=== PATIENT | female | born 2000 | race Caucasian/White ===

== ENCOUNTER 2024-10-01 12:17 | Emergency (ER) | payer SELFPAY ==
--- OUTSIDE RECORDS SUMMARY | 2024-10-01 12:21 | XMS REPORT | Continuity of Care Document ---
Author Name Unknown Address [address] [facility]. [phone] [facility] [place] Address [address] [facility] [phone] Care Team Providers Care Health/Safety Job Titles Name Role Phone PCP, PATIENT DOES NOT HAVE A Primary Care Physic tyrone Unavailable Sabina HOFFMAN Attending Clinician Unavailable Sabina HOFFMAN Attending Clinician Unavailable Pcp, Patient Does Not Have A Attending Clinician Ari Lira NP Attending Clinician [phone] ARI LIRA Attending Clinician UnavailLIU Sanabria Attending Clinician Unavaildorie GENAOPLiu Attending Clinician [phone] Doctor Unassigned, Laona Attending Clinician U Sonu Echavarria MD Attending Clinician [phone] SONU SOTO Attending Clinician Marilyn Blair MD Attending Clinician [phone] Pob, Adc Lab Main Attending Clinician Unavailabl e Ultrasound, Adc Mfm Attending Clinician Unavaildorie Johnston MD, Jackson Attending Clinician + ARI LIRA Admitting Clinician LIU Cadena Admitting Clinician UnavailMarilyn Bhat MD Admitting Clinician [phone] Payers Payer Name Policy Type Policy Number Effective Date Expirati on Date Source [employer] - OUT OF STATE [id number] 2018 00:00:00 MEDICA[place] [id number] 2021 00:00:00 Problems Condition Name Condition Details Condition Category Status Onset Date Resolution Date Last Treatment Date Treating Clinician Comments Source Right ovarian cyst Right ovarian cyst Disease Active 08-12 00:00: 00 [facility] Pelvic cramping Pelvic cramping Disease Active 08-12 00:00: 00 [facility] IUD (intrauter ine device) in place IUD (intrauter ine device) in place Disease Active 12-11 00:00: 00 [facility] BMI 27.0-27.9, adult BMI 27.0-27.9, adult Disease Active 12-11 00:00: 00 [facility] BMI 27.0-27.9, adult BMI 27.0-27.9, adult Disease Active 12-11 00:00: 00 [facility] Tetrahydro cannabinol (THC) use disorder, mild, abuse Tetrahydro cannabinol (THC) use disorder, mild, abuse Disease Active 02-24 00:00: 00 [facility] Tetrahydro cannabinol (THC) use disorder, mild, abuse Tetrahydro cannabinol (THC) use disorder, mild, abuse Disease Active 02-24 00:00: 00 [facility] Allergies, Adverse Reactions, Alerts Allergy Name Allergy Type Status Severity Reaction(s) Onset Date Inactive Date Treating Clinician Comments Source NO KNOWN ALLERGIE S Drug Class Active [facility] Social History Social Habit Start Date Stop Date Quantity Comments Source History SDOH Alcohol Comment [facility] History SDOH Alcohol Std Drinks [facility] History SDOH Alcohol Binge [facility] intake 2023-06-08 00:00:00 2023-06-08 00:00:00 Lifetime non-drinker (finding) [facility] Exposure to SARS-CoV-2 (event) 2022-09-17 00:00:00 2022-09-27 18:19:00 Not sure [facility] Tobacco use and exposure 2022-08-12 00:00:00 2022-08-12 00:00:00 Smokeless tobacco non-user [facility] History of Social function 2021-12-11 00:00:00 2021-12-11 00:00:00 [facility] History SDOH Alcohol Frequency 2021-02-10 00:00:00 2021-02-10 00:00:00 1 [facility] Sex Assigned At 2002 00:00:00 2000 00:00:00 [facility] Smoking Status Start Date Stop Date Source Never smoked tobacco [facility] Medications Ordered Medication Name Filled Medication Name Start Date Stop Date Current Medication? Ordering Clinician Indication Dosage Frequency Signature (SIG) Comments Components Source predniSONE 10 mg tablet 2022-07 00:00: 00 Yes [id number] 1 PO BID x 4 days [facility] NaCl 0.9% (NS) bolus infusion 1,000 mL 09-28 00:45: 00 09-28 02:33 :00 No 1000mL at 999 mL/hr, 1,000 mL, IV Infusion, ONCE, 1 dose, On Tue09/27/22 at 1845, MARC [facility] cefdinir 300 mg capsule 09-27 00:00: 00 10-05 04:59 :00 No [id number] 300mg Take 1 capsule by mouth in the morning and 1 capsule in the evening. Do all this for 7 days. [facility] vit calc,iron,f olic ( VITAMIN ORAL) 08-12 15:06: 58 Yes [id number] 09 Take by mouth. [facility] vit calc,iron,f olic ( VITAMIN ORAL) 03-20 12:27: 01 Yes [id number] 09 Take by mouth. [facility] ferrous sulfate (IRON, FERROUS SULFATE,) 325 mg (65 mg iron) tablet 02-10 00:00: 00 Yes [id number] 325mg Take 1 tablet by mouth every other day. [facility] ascorbic acid, vitamin C, 500 mg tablet 02-10 00:00: 00 Yes [id number] 500mg Take 1 tablet by mouth every other day. [facility] Immunizations Ordered Immunization Name Filled Immunization Name Date Status Comments Source [facility] 2021-03-20 00:00:00 Completed [facility] Varicella (varivax)(chicken pox) 2021-03-20 00:00:00 Completed [facility] 2021-03-20 00:00:00 Completed [facility] Varicella (varivax)(chicken pox) 2021-03-20 00:00:00 Completed [facility] 2021-03-20 00:00:00 Completed [facility] Varicella (varivax)(chicken pox) 2021-03-20 00:00:00 Completed [facility] 2021-03-20 00:00:00 Completed [facility] Varicella (varivax)(chicken pox) 2021-03-20 00:00:00 Completed [facility] 2021-03-20 00:00:00 Completed [facility] Varicella (varivax)(chicken pox) 2021-03-20 00:00:00 Completed [facility] 2021-03-20 00:00:00 Completed [facility] Varicella (varivax)(chicken pox) 2021-03-20 00:00:00 Completed [facility] 2021-03-20 00:00:00 Completed [facility] Varicella (varivax)(chicken pox) 2021-03-20 00:00:00 Completed [facility] 2021-03-20 00:00:00 Completed [facility] Varicella (varivax)(chicken pox) 2021-03-20 00:00:00 Completed [facility] TDAP 2021-02-10 00:00:00 Completed [facility] TDAP 2021-02-10 00:00:00 Completed [facility] TDAP 2021-02-10 00:00:00 Completed [facility] TDAP 2021-02-10 00:00:00 Completed [facility] TDAP 2021-02-10 00:00:00 Completed [facility] TDAP 2021-02-10 00:00:00 Completed [facility] TDAP 2021-02-10 00:00:00 Completed [facility] TDAP 2021-02-10 00:00:00 Completed [facility] TDAP Unknown Completed [facility] MMR Unknown Completed [facility] Varicella (varivax)(chicken pox) Unknown Completed [facility] TDAP Unknown Completed [facility] MMR Unknown Completed [facility] Varicella (varivax)(chicken pox) Unknown Completed [facility] TDAP Unknown Completed [facility] MMR Unknown Completed [facility] Varicella (varivax)(chicken pox) Unknown Completed [facility] Vital Signs Vital Name Observation Time Observation Value Comments S ource Systolic blood pressure 2023-06-08 19:29:00 95 mm[Hg] [facility] Diastolic blood pressure 2023-06-08 19:29:00 60 mm[Hg] [facility] Heart rate 2023-06-08 19:29:00 60 /min [facility] Body temperature 2023-06-08 19:29:00 37.39 Whitney [facility] Respiratory rate 2023-06-08 19:29:00 18 /min [facility] Body height 2023-06-08 19:29:00 154.9 cm [facility] Body weight 2023-06-08 19:29:00 49.896 kg [facility] BMI 2023-06-08 19:29:00 20.78 kg/m2 [facility] Oxygen saturation in Arterial blood by Pulse oximetry 2023-06-08 19:29:00 99 /min [facility] Systolic blood pressure 2022-09-28 02:28:00 109 mm[Hg] [facility] Diastolic blood pressure 2022-09-28 02:28:00 69 mm[Hg] [facility] Heart rate 2022-09-28 02:28:00 79 /min Unive [facility] Respiratory rate 2022-09-28 02:28:00 16 /min [facility] Oxygen saturation in Arterial blood by Pulse oximetry 2022-09-28 02:28:00 100 /min [facility] Body temperature 2022-09-27 23:16:00 36.61 Whitney [facility] Body height 2022-09-27 23:16:00 157.5 cm [facility] Body weight 2022-09-27 23:16:00 54.432 kg [facility] BMI 2022-09-27 23:16:00 21.95 kg/m2 [facility] Systolic blood pressure 2022-08-12 21:06:00 112 mm[Hg] [facility] Diastolic blood pressure 2022-08-12 21:06:00 77 mm[Hg] [facility] Heart rate 2022-08-12 21:06:00 122 /min [facility] Body temperature 2022-08-12 21:06:00 36.72 Whitney [facility] Respiratory rate 2022-08-12 21:06:00 18 /min [facility] Body height 2022-08-12 21:06:00 154.9 cm [facility] Body weight 2022-08-12 21:06:00 54.885 kg [facility] BMI 2022-08-12 21:06:00 22.86 kg/m2 [facility] Systolic blood pressure 2021-12-11 19:26:00 117 mm[Hg] [facility] Diastolic blood pressure 2021-12-11 19:26:00 77 mm[Hg] [facility] Heart rate 2021-12-11 19:26:00 100 /min [facility] Respiratory rate 2021-12-11 19:26:00 18 /min [facility] Body height 2021-12-11 19:26:00 157.5 cm [facility] Body weight 2021-12-11 19:26:00 67.189 kg [facility] BMI 2021-12-11 19:26:00 27.09 kg/m2 [facility] Body mass index (BMI) [Percentile] Per age and sex 2021-12-11 19:26:00 87.79 % [facility] Oxygen saturation in Arterial blood by Pulse oximetry 2021-12-11 19:26:00 100 /min [place] [facility] Procedures Procedure Date / Time Performed Performing Clinician Source RAPID STREP SCREEN FOR GROUP A 2023-06-08 21:18:00 Sabina Hoffman [facility] RAPID INFLUENZA A/B 2023-06-08 21:18:00 Sabina Hoffman e [facility] COVID-19 (ID NOW RAPID TESTING) 2023-06-08 21:18:00 Sabina Hoffman [facility] ASSIGNMENT OF BENEFITS 2023-06-08 20:23:21 Docto r Unassigned, Laona [facility] CONSENT/REFUSAL FOR DIAGNOSIS AND TREATMENT 2023-06-08 19:05:17 Doctor Unassigned, Laona [facility] PATIENT FINANCIAL POLICY 2022-11-01 18:03:42 Doctor Unassigned, Laona [facility] CONSENT/REFUSAL FOR DIAGNOSIS AND TREATMENT 2022-11-01 18:03:20 Doctor Unassigned, Laona [facility] ASSIGNMENT OF BENEFITS 2022-11-01 18:03:00 Docto r Unassigned, Laona [facility] POCT TEST 2022-09-28 00:18:00 Sierra Duong [facility] LIPASE 2022-09-28 00:17:00 Liu Duong [facility] MAGNESIUM 2022-09-28 00:17:00 Liu Duong [facility] TROPONIN I 2022-09-28 00:17:00 Liu Duong [facility] COMP. METABOLIC PANEL ([id number]) 2022-09-28 00:17:00 Liu Duong [facility] CBC WITH DIFF 2022-09-28 00:17:00 Liu Duong [facility] URINALYSIS 2022-09-28 00:17:00 Liu Duong U [facility] CONSENT/REFUSAL FOR DIAGNOSIS AND TREATMENT 2022-09-27 22:58:13 Doctor Unassigned, Laona [facility] EXTERNAL PROVIDER RECORDS 2022-08-24 06:01:00 Doctor Unassigned, Laona [facility] AUTHORIZATION TO RELEASE PHI TO [facility] 2022-08-12 06:01:00 Doctor Unassigned, Laona [facility] Encounters Start Date/Time End Date/Time Encounter Type Admission Type Attending [facility] Care Department Encounter ID Source 2021-05-25 18:11:01 Emergency [facility] [id number] [facility] 2023-06-08 13:31:00 2023-06-08 17:11:00 Emergency X Sabina HOFFMAN K [facility] ERT [id number] [facility] 2023-06-08 13:31:00 2023-06-08 17:11:00 Emergency Sabina Hoffman [facility] 1.2.840.114 350.1.13.10 4.2.7.2.686 [id number] [facility] 2023-06-08 00:00:00 2023-06-08 00:00:00 Patient Secure Msg Pcp, Patient Does Not Have A [facility] 1.840.114 350.1.13.10 4.2.7.2.686 [id number] [facility] 2022-11-03 00:00:00 2022-11-03 00:00:00 Patient Secure Msg Ari Lira [facility] 1.2840.114 350.1.13.10 4.2.7.2.686 [id number] [facility] 2022-11-01 13:02:55 2022-11-01 23:59:00 Outpatient R ARI LIRA CHERYAL [facility] [id number] [facility] 2022-11-01 13:00:00 2022-11-01 23:59:00 Hospital Encounter Ari Lira [facility] 1.2840.114 350.1.13.10 4.2.7.2.686 [id number] [facility] 2022-09-27 17:21:00 2022-09-27 20:33:00 Emergency X LIU DUONG [facility] ERT [id number] [facility] 2022-09-27 17:21:00 2022-09-27 20:33:00 Emergency Liu Duong [facility] 1.2840.114 350.1.13.10 4.2.7.2.686 [id number] [facility] 2022-09-27 00:00:00 2022-09-27 00:00:00 Orders Only Doctor Unassigned, Laona [facility] 1.2840.114 350.1.13.10 4.2.7.2.686 [id number] [facility] 2022-08-24 00:00:00 2022-08-24 00:00:00 Orders Only Doctor Unassigned, Laona [facility] 1.2840.114 350.1.13.10 4.2.7.2.686 [id number] [facility] 2022-08-13 00:00:00 2022-08-13 00:00:00 Telephone Ari Lira [facility] 1.0.114 350.1.13.10 4.2.7.2.686 [id number] [facility] 2022-08-12 15:00:00 2022-08-12 15:16:06 Outpatient R ARI LIRA CHERYAL [facility] [id number] [facility] 2022-08-12 15:00:00 2022-08-12 15:16:06 Office Visit Ari Lira [facility] 1.0.114 350.1.13.10 4.2.7.2.686 [id number] [facility] 2022-08-12 00:00:00 2022-08-12 00:00:00 Orders Only Doctor Unassigned, Laona [facility] 1.2840.114 350.1.13.10 4.2.7.2.686 [id number] [facility] 2021-12-11 14:15:00 2021-12-11 14:45:00 Office Visit Ari Lira [facility] 1.840.114 350.1.13.10 4.2.7.2.686 [id number] [facility] 2021-12-11 14:15:00 2021-12-11 14:15:00 Outpatient R ARI LIRA CHERYAL [facility] [id number] [facility] 2021-12-08 09:45:00 2021-12-08 09:45:00 Outpatient R ARI LIRA CHERYAL [facility] [id number] [facility] 2021-12-08 09:45:00 2021-12-08 09:45:00 Outpatient R ARI LIRA CHERYAL [facility] [id number] [facility] 2021-05-28 15:00:41 2021-05-28 15:30:41 Office Visit Sonu Soto [facility] 1.2840.114 350.1.13.10 4.2.7.2.686 [id number] [facility] 2021-05-28 15:00:00 2021-05-28 15:00:00 Outpatient R SONU SOTO [facility] [id number] [facility] 2021-05-21 00:00:00 2021-05-21 00:00:00 Telephone Sonu Soto [facility] 1.2.840.114 350.1.13.10 4.2.7.2.686 [id number] [facility] 2021-05-21 00:00:00 2021-05-21 00:00:00 Orders Only Doctor Unassigned, Laona [facility] 1.2.840.114 350.1.13.10 4.2.7.2.686 [id number] [facility] 2021-04-30 13:29:06 2021-04-30 14:32:01 Office Visit Charles Sonu [facility] 1.2840.114 350.1.13.10 4.2.7.2.686 [id number] [facility] 2021-04-30 13:30:00 2021-04-30 13:30:00 Outpatient R SONU SOTO [facility] [id number] [facility] 2021-04-30 00:00:00 2021-04-30 00:00:00 Orders Only Doctor Unassigned, Laona [facility] 1.2840.114 350.1.13.10 4.2.7.2.686 [id number] [facility] 2021-04-09 10:36:20 2021-04-09 11:34:30 Routine Visit CharlesJuanpablon [facility] 1.2.840.114 350.1.13.10 4.2.7.2.686 [id number] [facility] 2021-04-09 10:00:00 2021-04-09 10:00:00 Outpatient R SONU SOTO [facility] [id number] [facility] 2021-03-18 23:24:00 2021-03-20 12:26:00 Hospital Encounter Marilyn Condon Megan [facility] 1.2.840.114 350.1.13.10 4.2.7.2.686 [id number] [facility] 2021-03-19 14:45:00 2021-03-19 14:45:00 Outpatient R SONU SOTO [facility] [id number] [facility] 2021-03-18 00:00:00 2021-03-18 00:00:00 Orders Only Doctor Unassigned, Laona [facility] 1.20.114 350.1.13.10 4.2.7.2.686 [id number] [facility] 2021-03-10 08:00:27 2021-03-10 08:41:39 Routine Visit Sonu Soto [facility] 1.114 350.1.13.10 4.2.7.2.686 [id number] [facility] 2021-03-10 08:00:00 2021-03-10 08:00:00 Outpatient R SONU SOTO [facility] [id number] [facility] 2021-03-09 13:00:00 2021-03-09 13:00:00 Outpatient SONU CHAPA [facility] [id number] [facility] 2021-03-09 12:14:02 2021-03-09 12:29:02 Datawarehouse Developer Visit Benedicto, Jaimie Lab Main Sonu Soto [facility] 1..114 350.1.13.10 4.2.7.2.686 [id number] [facility] 2021-03-03 12:56:18 2021-03-03 14:03:31 Routine Visit Sonu Soto [facility] 1..114 350.1.13.10 4.2.7.2.686 [id number] [facility] 2021-03-03 13:00:00 2021-03-03 13:00:00 Outpatient R SONU SOTO [facility] [id number] [facility] 2021-02-24 10:39:54 2021-02-24 11:47:41 Routine Visit Sonu Soto [facility] 1.114 350.1.13.10 4.2.7.2.686 [id number] [facility] 2021-02-24 11:00:00 2021-02-24 11:00:00 Outpatient R SNOU SOTO [facility] [id number] [facility] 2021-02-20 09:10:23 2021-02-20 10:10:23 Datawarehouse Developer Visit Ultrasound, Adc Mfm Renetta Wallis [facility] 1.114 350..13.10 4.2.7.2.686 [id number] [facility] 2021-02-20 09:00:00 2021-02-20 09:00:00 Outpatient P [facility] [id number] [facility] 2021-02-10 11:39:51 2021-02-10 11:54:51 Datawarehouse Developer Visit Pob, Adc Lab Main Charles Sonu [facility] 1.114 350..13.10 4.2.7.2.686 [id number] [facility] 2021-02-10 09:30:00 2021-02-10 09:30:00 Outpatient R SONU SOTO [facility] [id number] [facility] 2021-02-10 00:00:00 2021-02-10 00:00:00 Letter (Out) Doctor Unassigned, Laona [facility] 1.114 350.1.13.10 4.2.7.2.686 [id number] [facility] Results Test Description Test Time Test Comments Results Result Co mments Source [id number] 01:02:57* Test Item Value Reference Range Interpretation Comme nts TROPONIN I (test code = 2537143363) 0.001 ng/mL <=0.034 SONYA (test code = SONYA) Reference (Normal) Range (defined by the 99th percentile reference limit): <= 0.034 ng/mL Note: Cardiac troponin begins to rise 3-4 hours after the onset of ischemia. Repeat in 4-6 hours if the sample was drawn within 3-4 hours of the onset of the symptom and found normal. Diagnosis of myocardial injury is made with acute changes in cTn concentrations with at least one serial sample above the 99th percentile upper reference limit (URL), taken together with the patient's clinical presentation. Biotin has been reported to cause a negative bias, interpret results relative to patient's use of biotin. Lab Interpretation (test code = 36079-1) Normal [facility]OL[facility] (92481)2022-09-28 00:51:33* Test Item Value Reference Range Interpretation Comme nts NA (test code = 0707558534) 140 mmol/L 135-145 K (test code = 1040576615) 4.3 mmol/L 3.5-5.0 CL (test code = 2946978889) 101 mmol/L 98-108 CO2 TOTAL (test code = 4119228831) 27 mmol/L 23-31 AGAP (test code = 8195989241) 12 2-16 BUN (test code = 4058911458) 15 mg/dL 7-23 GLUCOSE (test code = 4179529066) 95 mg/dL 70-110 CREATININE (test code = 4705584476) 0.68 mg/dL 0.50-1.04 TOTAL BILI (test code = 9494256765) 0.5 mg/dL 0.1-1.1 CALCIUM (test code = 9211822864) 9.0 mg/dL 8.6-10.6 T PROTEIN (test code = 5842263585) 8.5 g/dL 6.3-8.2 H ALBUMIN (test code = 9822060011) 4.7 g/dL 3.5-5.0 ALK PHOS (test code = 8819228121) 54 U/L 34-122 ALTv (test code = 1742-6) 16 U/L 5-35 AST(SGOT) (test code = 2433508575) 22 U/L 13-40 eGFR (test code = 4976996609) 110.3 mL/min/1.73m2 SONYA (test code = SONYA) Association of Glomerular Filtration Rate (GFR) and Staging of Kidney Disease* + --+ --+ ------+| GFR (mL/min/1.73 m2) ?| With Kidney Damage ?| ?Without Kidney Damage+ --------+ --------+ +| ?>90 ?| ?Stage one ?| ? Normal ?+ ---+ ---+ -------+| ?60-89 ?| ?Stage two ?| ? Decreased GFR ? + --+ --+ ------+| ?30-59 ?| ?Stage three ?| ? Stage three ? + --+ --+ ------+| ?15-29 ?| ?Stage four ? | ? Stage four ?+ ---+ ---+ -------+| ?<15 (or dialysis) ? ?| ?Stage five ? | ? Stage five ?+ ---+ ---+ -------+ *Each stage assumes the associated GFR level has been in effect for at least three months. ?Stages 1 to 5, with or without kidney disease, indicate chronic kidney disease. Notes: Determination of stages one and two (with eGFR >59mL/min/1.73 m2) requires estimation of kidney damage for at least three months as defined by structural or functional abnormalities of the kidney, manifested by either:Pathological abnormalities or Markers of kidney damage (including abnormalities in the composition of the blood or urine or abnormalities in imaging tests). Lab Interpretation (test code = 31969-3) Abnormal [facility] 00:51:33* Test Item Value Reference Range Interpretation Comme nts MAGNESIUM (test code = 8530139742) 2.1 mg/dL 1.7-2.4 Lab Interpretation (test cod e = 04201-4) Normal [facility] 00:51:12* Test Item Value Reference Range Interpretation Comme nts LIPASE (test code = 6673321314) 219 U/L 0-220 Lab Interpretation (test cod e = 57568-5) [id number] 00:18:00* Test Item Value Reference Range Interpretation Comme nts POCT PREG (test code = 1605) Negative On board controls acceptable with C Line (test code = 3574) Present POCT PREG LOT # (test code = 3575) [id number] POCT PREG TEST DATE ( test code = 3576) 12-23-2023 Lab Interpretation (test cod e = 53427-5) Normal [facility]"
--- NOTE | 2024-10-01 13:01 | RAD REPORT ---
Procedure: Chest Pa And Lat (2 Views) HISTORY: Cough COMPARISON: none FINDINGS: The lungs appear clear of acute infiltrate. No significant pleural effusion noted. The heart is normal size. IMPRESSION: No acute abnormality is displayed.
[2024-10-01] MEDS ORDERED: ONDANSETRON 4 MG/2 ML VIAL ONE (13:15)
[2024-10-01] MEDS ORDERED: NA CHLORIDE 0.9% 1,000 ML ONE (13:15)
[2024-10-01 13:45] LABS: Absolute Lymphocytes (CBC) 1.2 K/uL (0.7-4.9); Absolute Monocytes 0.1 K/uL (0.1-1.3); Absolute Neutrophil 9.1 K/uL (1.8-8.0); Basophils % 0.1 % (0-1.3); Hemoglobin 12.9 g/dL (12.0-15.0); Lymphocytes % 11.2 % (15.3-44.8); MCH 29.8 pg (27.0-35.0); MCV 90.3 fL (80-100); Monocytes % 1.3 % (3.3-12.3); Neutrophils % 87.4 % (41.7-73.7); Platelets 300 thou/uL (152-406); RBC Red Blood Cell Count 4.32 M/uL (3.86-4.86); Red Cell Distribution Width 13.4 % (12.1-15.2)
[2024-10-01 14:01] LABS: Albumin 4.2 g/dL (3.4-5.0); Albumin/Globulin Ratio 1.2 (1.1-1.8); Anion Gap 12.3 mEq/L (5.0-15.0); Bilirubin Total 0.6 mg/dL (0.2-1.0); Globulin 3.5 g/dL (2.3-3.5); Potassium 3.3 mEq/L (3.5-5.1); Protein, Total 7.7 g/dL (6.4-8.2)
[2024-10-01 14:08] LABS: Influenza A Ag Negative; Influenza B Ag Negative; SARS-CoV-2 Antigen Rapid Res Negative (Negative)
[2024-10-01 14:40] LABS: Specific Gravity > 1.030 (1.005-1.030); Sqamous Epithelial <5 /HPF (None Seen); Urine Bacteria <20 /HPF (<20); Urine Bilirubin NEGATIVE (Negative); Urine Blood Negative (Negative); Urine Clarity Turbid (Clear); Urine Color Yellow (Yellow); Urine Culture Reflex Order NOT NEEDED; Urine Glucose NEGATIVE (Negative); Urine Ketones 4+ (Negative); Urine Microscopic Reflex YN ORDER UMIC; Urine Mucus 2+ /HPF (None Seen); Urine Nitrite NEGATIVE (Negative); Urine Protein 2+ (Negative); Urine RBC <5 /HPF (None Seen); Urine Urobilinogen Normal (Normal); Urine WBC <5 /HPF (<5); Urine pH 5.5 (5.0-7.0)
--- NOTE | 2024-10-01 14:57 | ER ---
Nurse's Notes [facility] Name: Francesca Horvath Age: 24 yrs Sex: Female : 2000 Arrival Date: 10/01/2024 Time: 12:17 Bed 16 Private MD: Diagnosis: Bradycardia, unspecified;Vomiting;Fever, unspecified;Viral infection, unspecified Presentation: 10/01 13:06 Chief complaint: N/V, sinus congestion, chills, malaise, and dizziness since this morning. Coronavirus screen: Client presents with at least one sign or symptom that may indicate coronavirus-19. Provider contacted for isolation considerations. Ebola Screen: No symptoms or risks identified at this time. Initial Sepsis Screen: Does the patient meet any 2 criteria? No. Patient's initial sepsis screen is negative. Does the patient have a suspected source of infection? No. Patient's initial sepsis screen is negative. Risk Assessment: Do you want to hurt yourself or someone else? Patient reports no desire to harm self or others. Onset of symptoms was October 01, 2024. 13:06 Method Of Arrival: Ambulatory 13:06 Acuity: ARLEEN 2 hb Historical: - Allergies: 13:08 No Known Allergies; hb - Home Meds: 13:08 None [Active]; hb - PMHx: 13:08 None; hb - PSHx: 13:08 None; hb - Immunization history:: Adult Immunizations up to date. - Infectious Disease History:: Denies. - Social history:: Smoking status: Reported history of juuling and/or vaping. Screenin:37 [facility] ED Fall Risk Assessment (Adult) History of falling in the last 3 months, kc6 including since admission No falls in past 3 months (0 pts) Confusion or Disorientation No (0 pts) Intoxicated or Sedated No (0 pts) Impaired Gait No (0 pts) Mobility Assist Device Used No (0 pt) Altered Elimination No (0 pt) Score/Fall Risk Level 0 - 2 = Low Risk Oriented to surroundings, Maintained a safe environment, Educated pt \T\ family on fall prevention, incl call for assistance when getting out of bed. Abuse screen: Denies threats or abuse. Denies injuries from another. Nutritional screening: No deficits noted. Tuberculosis screening: No symptoms or risk factors identified. Assessment: 13:39 General: Appears in no apparent distress. uncomfortable, ill, slender, well groomed, kc6 well developed, Behavior is calm, cooperative, appropriate for age, Reports chills for 12-24 hours, fever for 12-24 hours, feeling ill for 12-24 hours, fatigue for 12-24 hours. Pain: Denies pain. Neuro: Level of Consciousness is awake, alert, obeys commands, Oriented to person, place, time, situation, Appropriate for age Reports dizziness. Cardiovascular: Capillary refill < 3 seconds. Respiratory: Airway is patent Trachea midline Respiratory effort is even, unlabored, Respiratory pattern is regular, symmetrical. GI: Abdomen is flat, non-distended, Pt is actively vomiting clear fluid, Bowel sounds present X 4 quads. Abd is soft X 4 quads Reports nausea, vomiting, Patient currently denies diarrhea. : No signs and/or symptoms were reported regarding the genitourinary system. EENT: Reports nasal congestion. Derm: No signs and/or symptoms reported regarding the dermatologic system. Skin is intact, is healthy with good turgor, Skin is dry, Skin is pale, Skin temperature is warm. Musculoskeletal: No signs and/or symptoms reported regarding the musculoskeletal system. Circulation, motion, and sensation intact. Range of motion: intact in all extremities. Vital Signs: 13:06 BP 84 / 60; Pulse 52; Resp 16; Temp 98.5; Pulse Ox 100% on R/A; Weight 47.63 kg; Height hb 5 ft. 1 in. ; Pain 0/10; 13:37 BP 107 / 62; Pulse 44; Resp 18 S; Pulse Ox 100% on R/A; kc6 14:32 BP 114 / 64; Pulse 41; Resp 16 S; Temp 97.7(O); Pulse Ox 100% on R/A; kc6 15:10 BP 116 / 69 Supine; Pulse 70; Pulse Ox 98% on R/A; zm 15:12 BP 108 / 59 Sitting; Pulse 64; Pulse Ox 100% on R/A; zm 15:14 BP 109 / 83 Standing; Pulse 88; Pulse Ox 97% on R/A; zm 13:06 Body Mass Index 19.84 (47.63 kg, 154.94 cm) hb 13:06 Pain Scale: Adult hb ED Course: 12:20 Patient arrived in ED. al6 12:21 Frederick Stpehenson MD is Attending Physician. [facility] 12:39 Chest Pa And Lat (2 Views) XRAY In Process Unspecified. EDMS 13:08 Triage completed. hb 13:08 Arm band placed on. hb 13:11 Halle Danielle, AZEEM is Primary Nurse. kc6 13:36 Inserted saline lock: 22 gauge in left antecubital area, using aseptic technique. Blood kc6 collected. Flushed with 10 mL NS. Patient maintains SpO2 saturation greater than 95% on room air. 13:37 Patient has correct armband on for positive identification. Placed in gown. Bed in low kc6 position. Call light in reach. Side rails up X 1. Pulse ox on. NIBP on. Door closed. Noise minimized. Lights dimmed. Warm blanket given. Pillow given. PO fluids given. Verbal reassurance given. 14:56 Enoc Silvestre MD is Referral Physician. [facility] 15:21 EKG done, by ED staff, reviewed by Frederick Stephenson MD. zm 16:00 No provider procedures requiring assistance completed. IV discontinued, intact, kc6 bleeding controlled, No redness/swelling at site. Pressure dressing applied. Administered Medications: 13:36 Drug: NS 0.9% IV 1000 ml IV at 1000 ml once; to be given as a bolus over 60 minutes kc6 Route: IV; Rate: 1000 ml; Site: left antecubital; 13:36 Drug: Ondansetron IVP 4 mg IVP once; over 2 minutes Route: IVP; Site: left antecubital; kc6 14:17 Follow up: Response: No adverse reaction; Nausea is decreased; Vomiting decreased kc6 Medication: 16:01 VIS not applicable for this client. kc6 Outcome: 14:56 Discharge ordered by . [facility] 16:01 Discharged to home ambulatory, kc6 16:01 Condition: good 16:01 Discharge instructions given to patient, Instructed on discharge instructions, follow up and referral plans. medication usage, Demonstrated understanding of instructions, follow-up care, medications, Prescriptions given X 1, 16:01 Patient left the ED. kc6 Signatures: Dispatcher [employer] EDMI Frederick Stephenson MD MD cha Baxter, Heather, RN RN hb Martinez, Zaina zm Campbell, Kaitlyn, RN RN kc6 Avis Adam al6 Corrections: (The following items were deleted from the chart) 13:08 13:08 PSHx: section; hb hb
--- NOTE | 2024-10-01 14:57 | EDPHYS ---
Physician Documentation [facility] Name: Francesca Horvath Age: 24 yrs Sex: Female : 2000 Arrival Date: 10/01/2024 Time: 12:17 Bed 16 Private MD: ED Physician Frederick Stephenson HPI: 10/01 14:46 This 24 yrs old Female presents to ER via Ambulatory with complaints of Flu jayson Symptoms, Fever, Vomiting. 14:46 The patient reports fever, not measured (subjective). Onset: The symptoms/episode jayson began/occurred 2 day(s) ago. Modifying factors: there are no obvious modifying factors. Associated signs and symptoms: Pertinent positives: abdominal pain, cough. Severity of symptoms: At their worst the symptoms were mild in the emergency department the symptoms are unchanged. Historical: - Allergies: 13:08 No Known Allergies; hb - Home Meds: 13:08 None [Active]; hb - PMHx: 13:08 None; hb - PSHx: 13:08 None; hb - Immunization history:: Adult Immunizations up to date. - Infectious Disease History:: Denies. - Social history:: Smoking status: Reported history of juuling and/or vaping. ROS: 14:47 Constitutional: Negative for fever, chills, and weight loss, Eyes: Negative for injury, jayson pain, redness, and discharge, ENT: Negative for injury, pain, and discharge, Neck: Negative for injury, pain, and swelling, Cardiovascular: Negative for chest pain, palpitations, and edema, Respiratory: Negative for shortness of breath, cough, wheezing, and pleuritic chest pain, Abdomen/GI: Negative for abdominal pain, nausea, vomiting, diarrhea, and constipation, Back: Negative for injury and pain, : Negative for injury, bleeding, discharge, and swelling, Skin: Negative for injury, rash, and discoloration, Neuro: Negative for headache, weakness, numbness, tingling, and seizure, Psych: Negative for depression, anxiety, suicide ideation, homicidal ideation, and hallucinations, Allergy/Immunology: Negative for hives, rash, and allergies, Endocrine: Negative for neck swelling, polydipsia, polyuria, polyphagia, and marked weight changes, Hematologic/Lymphatic: Negative for swollen nodes, abnormal bleeding, and unusual bruising, 14:47 Abdomen/GI: Positive for abdominal pain, nausea and vomiting, abdominal cramps, 14:47 MS/extremity: 14:47 MS/extremity: Negative for acute changes, Exam: 14:47 Constitutional: This is a well developed, well nourished patient who is awake, alert, jayson and in no acute distress. Head/Face: Normocephalic, atraumatic. Eyes: Pupils equal round and reactive to light, extra-ocular motions intact. Lids and lashes normal. Conjunctiva and sclera are non-icteric and not injected. Cornea within normal limits. Periorbital areas with no swelling, redness, or edema. ENT: Nares patent. No nasal discharge, no septal abnormalities noted. Tympanic membranes are normal and external auditory canals are clear. Oropharynx with no redness, swelling, or masses, exudates, or evidence of obstruction, uvula midline. Mucous membranes moist. Neck: Trachea midline, no thyromegaly or masses palpated, and no cervical lymphadenopathy. Supple, full range of motion without nuchal rigidity, or vertebral point tenderness. No Meningismus. Chest/axilla: Normal chest wall appearance and motion. Nontender with no deformity. No lesions are appreciated. Respiratory: Lungs have equal breath sounds bilaterally, clear to auscultation and percussion. No rales, rhonchi or wheezes noted. No increased work of breathing, no retractions or nasal flaring. Abdomen/GI: Soft, non-tender, with normal bowel sounds. No distension or tympany. No guarding or rebound. No evidence of tenderness throughout. Back: No spinal tenderness. No costovertebral tenderness. Full range of motion. Skin: Warm, dry with normal turgor. Normal color with no rashes, no lesions, and no evidence of cellulitis. MS/ Extremity: Pulses equal, no cyanosis. Neurovascular intact. Full, normal range of motion., bilateral aka Neuro: Awake and alert, GCS 15, oriented to person, place, time, and situation. Cranial nerves II-XII grossly intact. Motor strength 5/5 in all extremities. Sensory grossly intact. Cerebellar exam normal. Normal gait. Psych: Awake, alert, with orientation to person, place and time. Behavior, mood, and affect are within normal limits. 14:47 Cardiovascular: Rate: bradycardic, actual rate is 41 bpm, Rhythm: regular, Pulses: no pulse deficits are appreciated, Heart sounds: normal, Edema: 14:47 ECG was reviewed by the Attending Physician. 14:47 Musculoskeletal/extremity: DVT Exam: No signs of deep vein thrombosis. no pain, no swelling, no tenderness, negative Homans' sign noted on exam, no appreciated bluish discoloration, no erythema, no increased warmth, 15:27 ECG was reviewed by the Attending Physician. [facility] Vital Signs: 13:06 BP 84 / 60; Pulse 52; Resp 16; Temp 98.5; Pulse Ox 100% on R/A; Weight 47.63 kg; Height hb 5 ft. 1 in. ; Pain 0/10; 13:37 BP 107 / 62; Pulse 44; Resp 18 S; Pulse Ox 100% on R/A; kc6 14:32 BP 114 / 64; Pulse 41; Resp 16 S; Temp 97.7(O); Pulse Ox 100% on R/A; kc6 15:10 BP 116 / 69 Supine; Pulse 70; Pulse Ox 98% on R/A; zm 15:12 BP 108 / 59 Sitting; Pulse 64; Pulse Ox 100% on R/A; zm 15:14 BP 109 / 83 Standing; Pulse 88; Pulse Ox 97% on R/A; zm 13:06 Body Mass Index 19.84 (47.63 kg, 154.94 cm) hb 13:06 Pain Scale: Adult hb MDM: 12:21 Medical Screening Exam initiated jayson 14:51 Differential diagnosis: Nonspecific abd pain, gastritis, cholecystitis, pancreatitis, jayson appendicitis, diverticulitis, viral gastroenteritis, gastroenteritis, viral Infection, bacterial infection, URI, bronchitis, pneumonia UTI, gastroenteritis. Differential Diagnosis flu. Data reviewed: vital signs, nurses notes, lab test result(s), EKG, radiologic studies, plain films. Consideration of Admission/Observation Escalation of care including admission/observation considered. I considered the following discharge prescriptions or medication management in the emergency department Medications were administered in the Emergency Department. See MAR. Independent interpretation of the following test(s) in the Emergency Department EKG: See my EKG interpretation above. Test considered but Not performed: CT: no ct ab/pelvic. Care significantly affected by the following chronic conditions: none , anemia. Counseling: I had a detailed discussion with the patient and/or guardian regarding the historical points, exam findings, and any diagnostic results supporting the discharge/admit diagnosis, lab results, radiology results, the need for outpatient follow up, for definitive care, a family practitioner. 10/01 12:23 Order name: CBC with Diff [facility] 10/01 12:23 Order name: Comprehensive Metabolic Panel; Complete Time: 14:40 [facility] 10/01 12:23 Order name: Urinalysis w/ reflexes; Complete Time: 14:44 [facility] 10/01 12:23 Order name: PREGU; Complete Time: 14:44 [facility] 10/01 12:23 Order name: COVID-19 Ag + Flu A+B Ag; Complete Time: 14:40 [facility] 10/01 15:05 Order name: CBC Smear Scan EDMS 10/01 12:23 Order name: Chest Pa And Lat (2 Views) XRAY; Complete Time: 14:40 [facility] 10/01 14:46 Order name: PO challenge: juice; Complete Time: 15:32 [facility] 10/01 14:46 Order name: EKG - Nurse/Tech; Complete Time: 15:21 [facility] 10/01 14:46 Order name: Orthostatics; Complete Time: 15:21 [facility] 10/01 14:59 Order name: Misc. Order: get ekg; Complete Time: 15:21 [facility] EC:27 Rate is 46 beats/min. Rhythm is regular. QRS [place] is Normal. OR interval is normal. QRS jayson interval is normal. QT interval is normal. No Q waves. T waves are Normal. No ST changes noted. Clinical impression: Sinus bradycardia and No evidence of ischemia. Interpreted by me. Reviewed by me. Administered Medications: 13:36 Drug: NS 0.9% IV 1000 ml IV at 1000 ml once; to be given as a bolus over 60 minutes kc6 Route: IV; Rate: 1000 ml; Site: left antecubital; 13:36 Drug: Ondansetron IVP 4 mg IVP once; over 2 minutes Route: IVP; Site: left antecubital; kc6 14:17 Follow up: Response: No adverse reaction; Nausea is decreased; Vomiting decreased kc6 Disposition Summary: 10/01/24 14:56 Discharge Ordered Notes: Location: Home jayson Problem: new jayson Symptoms: have improved jayson Condition: Stable jayson Diagnosis - Bradycardia, unspecified jayson - Vomiting jayson - Fever, unspecified jayson - Viral infection, unspecified jayson Followup: jayson - With: Private Physician - When: 2 - 3 days - Reason: Recheck today's complaints, Continuance of care, Re-evaluation by your physician Followup: jayson - With: Enoc Silvestre MD - When: 2 - 3 days - Reason: Recheck today's complaints, Re-evaluation by your physician Discharge Instructions: - Discharge Summary Sheet jayson - Bradycardia, Adult jayson - Fever, Adult jayson - Viral Respiratory Infection jayson - Viral Respiratory Infection, [id number] jayson - Viral Illness, Pediatric jayson - Viral Illness, Adult jayson Forms: - Medication Reconciliation Form jayson - Antibiotic Education jayson - Prescription Opioid Use jayson - Patient Portal Instructions [facility] - Leadership Thank You Letter [facility] Prescriptions: - ondansetron 4 mg Oral Tablet,disintegrating - take 1 tablet ORAL route every 8 hours for 4 days as needed for nausea and jayson vomiting; 20 tablet; Refills: 0, Product Selection Permitted Signatures: Dispatcher [employer] EDMS Frederick Stephenson MD MD cha Baxter, Heather, RN RN Halle Danielle RN RN kc6 Corrections: (The following items were deleted from the chart) 12:23 12:23 CBC+H.LAB.BRZ ordered. EDMS EDMS 12:23 12:23 COMPREHENSIVE METABOLIC PANEL+C.LAB.BRZ ordered. EDMS EDMS 12:23 12:23 Urinalysis+U.LAB.BRZ ordered. EDMS EDMS 12:23 12:23 Test, Urine+UC.LAB.BRZ ordered. EDMS EDMS 12:23 12:23 COVID-19 Ag + Flu A+B Ag+I.LAB.BRZ ordered. EDMS EDMS 12:24 12:23 Chest Pa And Lat (2 Views)+RAD.RAD.BRZ ordered. EDMS EDMS 13:08 13:08 PSHx: section; hb hb
[2024-10-01 15:05] LABS: Blood Morphology Comment NOT SEEN (NOT SEEN); Platelet Estimate ADEQ; White Blood Cell Scan OK (OK)
[2024-10-01 16:46] VITALS: TEMP 97.7
[2024-10-01 16:49] VITALS: BP 109/83; O2SAT 97
--- NOTE | 2024-10-02 10:59 | EKG ---
Test Date: 2024-10-01 Test Time: 15:17:06 Tubing Tester: CAPRICE MEASUREMENT RESULTS: Intervals: Rate: 46 ID: [id number] QRSD: 86 QT: 478 QTc: 418 [place]: P: 64 ID: [id number] QRS: 89 T: 69 INTERPRETIVE STATEMENTS: Marked sinus bradycardia with sinus arrhythmia Abnormal ECG No previous ECG available for comparison Electronically Signed On 10-02-24 10:56:31 CDT by Kevin Rios
== END 2024-10-01 16:01 | disposition home or self-care (01) ==
LOC: ER 12:17
DX: B34.9 Viral infection, unspecified (principal); R00.1 Bradycardia, unspecified; R11.10 Vomiting, unspecified; Z11.52 Encounter for screening for COVID-19
CPT/HCPCS: 36415; 71046; 80053; 81001; 81025; 85025; 87428; 93005; 96374; 99284; J2405; J7030